=== PATIENT | female | born 1975 | race Caucasian/White ===

== ENCOUNTER 2020-09-25 15:14 | Emergency (ER) | payer SELFPAY ==
[~2020-09-25] VITALS: Ht 162.6 cm; Wt 127.3 kg
[2020-09-25] MEDS ORDERED: CONTRAST GIVEN. MC PRN (17:00)
[2020-09-25] MEDS ORDERED: IOHEXOL 350 MG/ML 100 ML VIAL. IV ONE (17:00)
--- NOTE | 2020-09-25 17:02 | EKG ---
[address] [address] Test Date: 2020-09-25 Test Time: 16:55:57 Pat Name: SYDNI NIÑO Department: Room: Gender: F Ophthalmology Technician: MICHELLE : 1975 Requested By: ARI LAUGHLIN Order Number: [id number] Reading MD: Measurements Intervals [place]olson Rate: 99 P: 31 CO: 150 QRS: 26 QRSD: 86 T: 19 QT: 344 QTc: 447 Interpretive Statements SINUS RHYTHM NORMAL ECG RI6.02 No previous ECG available for comparison
[2020-09-25 17:28] LABS: BILIRUBIN,URINE NEG (NEG); CLARITY,URINE HAZY; COLOR,URINE YELLOW; GLUCOSE,URINE NEG (NEG)
[2020-09-25 17:29] LABS: NITRITE,URINE NEG (NEG); UROBILINOGEN,URINE 0.2 mg/dL (0.2 mg/dL)
[2020-09-25 17:30] LABS: RBC,URINE 0 /HPF (0-2)
[2020-09-25 17:31] LABS: BACTERIA,URINE 0 /HPF (0-FEW); SQUAMOUS EPITHELIAL CELL,UR MOD /LPF; WBC,URINE OCC /HPF (0-4)
[2020-09-25 17:34] LABS: BASO % 0 % (0-3); EOS # 0.1 x10^3/uL (0.0-0.7); EOS % 1 % (0-3); HEMATOCRIT 25.9 % (36.0-47.0); HEMOGLOBIN 8.4 g/dL (12.0-15.5); LYMPH # 1.6 x10^3/uL (1.0-4.8); LYMPH % 11 % (24-48); MEAN CORPUSCULAR HEMOGLOBIN 26 pg (25-35); MEAN CORPUSCULAR HGB CONC 32 g/dL (31-37); MEAN CORPUSCULAR VOLUME 79 fL (79-100); MONO # 1.2 x10^3/uL (0.0-1.1); MONO % 8 % (0-9); NEUT # 11.1 x10^3uL (1.8-7.7); NEUT % 79 % (31-73); PLATELET COUNT 331 x10^3/uL (140-400); RED BLOOD COUNT 3.27 x10^6/uL (3.50-5.40); RED CELL DISTRIBUTION WIDTH 14.5 % (11.5-14.5)
[2020-09-25 17:48] LABS: CALCIUM 9.4 mg/dL (8.5-10.1); CREATININE 0.9 mg/dL (0.6-1.0); GFR 68.7; POTASSIUM 3.7 mmol/L (3.5-5.1)
[2020-09-25 17:54] LABS: ALBUMIN 2.6 g/dL (3.4-5.0); ALBUMIN/GLOBULIN RATIO 0.5 (1.0-1.7); TOTAL BILIRUBIN 0.6 mg/dL (0.2-1.0); TOTAL PROTEIN 8.2 g/dL (6.4-8.2)
--- NOTE | 2020-09-25 18:06 | RAD ---
CTA chest abdomen pelvis with contrast dated 09/25/2020. No comparison available. CLINICAL INDICATION: Shortness of breath. Abdominal pain. TECHNIQUE: Contiguous axial imaging of the chest abdomen pelvis performed following the intravenous administrati on of 100 cc Isovue-370. Study was performed as dedicated CTA with thin cut coronal and sagittal MIPS reconstructions One or more of the following individualized dose reduction techniques were utilized for this examinat ion: 1. Automated exposure control 2. Adjustment of the mA and/or kV according to patient size 3. Use of iterative reconstruction technique FINDINGS: Contrast bolus is adequate. No evidence of central, lobar or segmental pulmonary embolus. Subsegmenta l branches are not well evaluated based on technique. Heart size is within normal limits. No pericardial effusion. There are nonpathologic enlarged lymph n odes in the right paratracheal and prevascular region measuring about 10 mm short axis. There is also borderline enlarged subcarinal and bilateral hilar lymph nodes. No axillary or supraclavicular lymph adenopathy. Thyroid gland is unremarkable. Central airways are patent. There is patchy consolidation of the posterior aspect of the left upper l obe and left lung apex and posterior right upper lobe with diffuse reticular nodular opacities throug hout both lungs. Mild diffuse bronchial wall thickening. No pleural effusion. No pneumothorax. Liver is somewhat enlarged. No apparent mass. Spleen is upper limits of normal in size. Gallbladder a nd biliary tree unremarkable. Pancreas, adrenal glands and kidneys are unremarkable. No hydronephrosis. There is contrast material in the bilateral renal collecting systems. Unopacified GI tract is normal in caliber and contour. No apparent bowel wall thickening. No pneumope ritoneum. The appendix is normal in caliber. There are borderline enlarged lymph nodes in the retrope ritoneum, nonspecific. Abdominal aorta normal in caliber. Images of pelvis show surgical absence of the uterus. There is inflammatory stranding and small amoun t of fluid in the pelvis and surrounding the urinary bladder. There is also edema within the subcutan eous tissues of the anterior abdominal wall with linear tract of fluid in the abdominal wall on the r ight that could be related to recent laparoscopic port site. There are low-density fluid collections along the bilateral sidewall, measuring approximately 6 cm on the right and 3.1 cm on the left. There are borderline enlarged bilateral iliac chain lymph nodes. Bone windows show no acute finding. Multilevel spondylosis. IMPRESSION: 1. No evidence of central, lobar or segmental pulmonary embolus. 2. Extensive reticular nodular opacities throughout both lungs with more focal areas of consolidation in the bilateral upper lobes. This is suspicious for diffuse pneumonia. Atypical infection such as C ovid 19 pneumonitis cannot be excluded. Correlate clinically. 3. Mild mediastinal and hilar adenopathy, nonspecific. 4. There is evidence of prior hysterectomy. Inflammatory stranding and fluid in the deep pelvic fat c ould be related to recent surgery. Underlying infection not excluded. 5. There are more focal fluid collections along the bilateral pelvic sidewall, right greater than lef t which could be related postoperative seroma, lymphocele or abscess. 6. Linear tract of fluid within the subcutaneous tissues of the anterior right abdominal wall, likely related to recent laparoscopic port placement. 7. Mild wall thickening of the urinary bladder, acute versus chronic cystitis. 8. Hepatomegaly. Electronically signed by: Louis Padron MD (09/25/2020 6:03 PM) [id number]
[2020-09-25] MEDS ORDERED: ONDANSETRON PF 4 MG/2 ML VIAL. IVP ONE (18:45)
[2020-09-25] MEDS ORDERED: MORPHINE SULFATE 10 MG/ML SYRINGE. IV ONE (18:45)
[2020-09-25] MEDS ORDERED: levoFLOXacin 250 MG TABLET PO ONE (18:45)
[2020-09-25] MEDS ORDERED: cefTRIAXone SODIUM 1 GM VIAL ONE (19:00)
[2020-09-25] MEDS ORDERED: levoFLOXacin 750 MG TABLET PO ONE (19:00)
[2020-09-25] MEDS ORDERED: IV NORMAL SALINE 50ML 50 ML ONE (19:00)
[2020-09-25 19:36] VITALS: BP 157/87
[2020-09-25] MEDS ORDERED: ONDA4TAB12 PO (19:56)
[2020-09-25] MEDS ORDERED: HYDR-2155 PO (19:56)
[2020-09-25] MEDS ORDERED: LEVO750T5 PO (19:56)
--- NOTE | 2020-09-25 19:59 | PHYS DOC ---
Past History Past Medical History: No Pertinent History (LOUIS LAUGHLIN APRN) Past Surgical History: Hysterectomy (LOUIS LAUGHLIN APRN) Alcohol Use: None (LOUIS LAUGHLIN APRN) Adult General Chief Complaint Chief Complaint: SHORTNESS OF BREATH HPI HPI Patient is a 44-year-old female who presents to the emergency department complaining of urinary burning and pressure for the past week and a half. Patient states it became worse today and noticed some increased shortness of breath with a brown productive sputum cough. Patient states she is coughing up a moderate amount of sputum. Patient also complains of right upper quadrant pain that started last night. Patient denies nausea, vomiting, diarrhea. Patient states she had a normal bowel movement this morning. Patient reports a recent surgical history of total hysterectomy by laparoscopic E on September 092020 related to endometrial cancer, patient states there are also nodules and spots on her lungs, patient reports having her next oncology appointment this coming Sunday. Patient states she is from [facility], was visiting in [facility] for her parents anniversary. Patient states she was on her way home and she could not take her abdominal pain any longer so she stopped off here in [place] to be seen in the emergency de partment. Patient denies allergies to medications, states she takes no medications at home. Patient reports her current pain a 7/10 on a 1-10 pain scale, states she has taken no medications for her pain patient denies any other physical complaints or physical concerns. (LOUIS LAUGHLIN APRN) Review of Systems Review of Systems 14 body systems of review of systems have been reviewed. See HPI for pertinent positives and negative responses, otherwise all other systems are negative, nonpertinent or noncontributory. (LOUIS LAUGHLIN APRN) Current Medications Current Medications Current Medications Medications (Trade) Dose Ordered Sig/Reilly Start Time Stop Time Status Last Admin Dose Admin Ceftriaxone Sodium 1 gm/ Sodium Chloride 50 ml @ 100 mls/hr 1X ONCE 09/25/20 18:45 09/25/20 19:14 DC 09/25/20 19:08 100 MLS/HR Ceftriaxone Sodium (Rocephin) 1 gm STK-MED ONCE 09/25/20 19:00 09/25/20 19:00 DC Fentanyl Citrate (Fentanyl 2ml Vial) 75 mcg 1X ONCE 09/25/20 16:45 09/25/20 16:47 DC 09/25/20 17:04 75 MCG Info (Do NOT chart on this entry -- for MONITORING) 1 each PRN DAILY PRN 09/25/20 17:00 09/27/20 16:59 Iohexol (Omnipaque 350 Mg/ml) 100 ml 1X ONCE 09/25/20 17:00 09/25/20 17:01 DC 09/25/20 17:31 100 ML Levofloxacin (Levaquin) 250 mg 1X ONCE 09/25/20 18:45 09/25/20 18:46 UNV Morphine Sulfate (Morphine 10mg Syringe) 6 mg 1X ONCE 09/25/20 18:45 09/25/20 18:58 DC 09/25/20 19:07 6 MG Ondansetron HCl (Zofran) 4 mg 1X ONCE 09/25/20 18:45 09/25/20 18:58 DC Sodium Chloride 50 ml @ As Directed STK-MED ONCE 09/25/20 19:00 09/25/20 19:00 DC (LOUIS LAUGHLIN APRN) Allergies Allergies Allergies Coded Allergies Type Severity Reaction Last Updated Verified No Known Drug Allergies 09/25/20 No (LOUIS LAUGHLIN APRN) Physical Exam Physical Exam Constitutional: Well developed, well nourished, mild acute distress, non-toxic appearance. HENT: Normocephalic, atraumatic, bilateral external ears normal, oropharynx moist, no oral exudates, nose normal. Eyes: PERRLA, EOMI, conjunctiva normal, no discharge. Neck: Normal range of motion, no tenderness, supple, no stridor. Cardiovascular:Heart rate regular rhythm, no murmur, heart sounds S1-S2 to auscultation. Lungs & Thorax: Bilateral breath sounds clear to auscultation no adventitious lung sounds appreciated. Patient is in no respiratory distress. Abdomen: Bowel sounds normal, soft, no tenderness, no masses, no pulsatile masses. Pain to right upper quadrant to palpation, positive Edmond sign, positive psoas sign, negative rebound tenderness, no bruising or ecchymotic areas of the abdomen, well-healing laparoscopic surgical sites to the abdomen. Skin: Warm, dry, no erythema, no rash. Back: No tenderness, no CVA tenderness. Extremities: No tenderness, no cyanosis, no clubbing, ROM intact, no edema. Neurologic: Alert and oriented X 3, normal motor function, normal sensory function, no focal deficits noted. Psychologic: Affect normal, judgement normal, mood normal. (LOUIS LAUGHLIN APRN) Current Patient Data Vital Signs Vital Signs Date Time Temp Pulse Resp B/P (MAP) Pulse Ox O2 Delivery O2 Flow Rate FiO2 09/25/20 19:07 18 09/25/20 16:51 91 145/77 (99) 95 Room Air 09/25/20 15:26 98.4 Lab Results Laboratory Tests Test 09/25/20 16:08 09/25/20 17:00 Urine Collection Type Unknown Urine Color Yellow Urine Clarity Hazy Urine pH 7.5 Urine Specific [place] 1.020 Urine Protein 100 mg/dl (NEG-TRACE) Urine Glucose (UA) Neg mg/dL (NEG) Urine Ketones (Stick) Neg mg/dL (NEG) Urine Blood Small (NEG) Urine Nitrite Neg (NEG) Urine Bilirubin Neg (NEG) Urine Urobilinogen Dipstick 0.2 mg/dL (0.2 mg/dL) Urine Leukocyte Esterase Neg (NEG) Urine RBC 0 /HPF (0-2) Urine WBC Occ /HPF (0-4) Urine Squamous Epithelial Cells Mod /LPF Urine Bacteria 0 /HPF (0-FEW) White Blood Count 14.0 x10^3/uL (4.0-11.0) H Red Blood Count 3.27 x10^6/uL (3.50-5.40) L Hemoglobin 8.4 g/dL (12.0-15.5) L Hematocrit 25.9 % (36.0-47.0) L Mean Corpuscular Volume 79 fL (79-100) Mean Corpuscular Hemoglobin 26 pg (25-35) Mean Corpuscular Hemoglobin Concent 32 g/dL (31-37) Red Cell Distribution Width 14.5 % (11.5-14.5) Platelet Count 331 x10^3/uL (140-400) Neutrophils (%) (Auto) 79 % (31-73) H Lymphocytes (%) (Auto) 11 % (24-48) L Monocytes (%) (Auto) 8 % (0-9) Eosinophils (%) (Auto) 1 % (0-3) Basophils (%) (Auto) 0 % (0-3) Neutrophils # (Auto) 11.1 x10^3uL (1.8-7.7) H Lymphocytes # (Auto) 1.6 x10^3/uL (1.0-4.8) Monocytes # (Auto) 1.2 x10^3/uL (0.0-1.1) H Eosinophils # (Auto) 0.1 x10^3/uL (0.0-0.7) Basophils # (Auto) 0.0 x10^3/uL (0.0-0.2) Sodium Level 140 mmol/L (136-145) Potassium Level 3.7 mmol/L (3.5-5.1) Chloride Level 103 mmol/L (98-107) Carbon Dioxide Level 27 mmol/L (21-32) Anion Gap 10 (6-14) Blood Urea Nitrogen 11 mg/dL (7-20) Creatinine 0.9 mg/dL (0.6-1.0) Estimated GFR (Cockcroft-Gault) 68.7 BUN/Creatinine Ratio 12 (6-20) Glucose Level 106 mg/dL (70-99) H Calcium Level 9.4 mg/dL (8.5-10.1) Total Bilirubin 0.6 mg/dL (0.2-1.0) Aspartate Amino Transferase (AST) 21 U/L (15-37) Alanine Aminotransferase (ALT) 51 U/L (14-59) Alkaline Phosphatase 174 U/L (46-116) H Troponin I Quantitative < 0.017 ng/mL (0-0.055) Total Protein 8.2 g/dL (6.4-8.2) Albumin 2.6 g/dL (3.4-5.0) L Albumin/Globulin Ratio 0.5 (1.0-1.7) L Lipase 65 U/L (73-393) L (LOUIS LAUGHLIN APRN) EKG EKG EKG performed at 1655 by house respiratory therapy staff shows a normal sinus rhythm without ectopy, heart rate 99 bpm, HI interval 0.150, QTc interval 0.447, no acute STEMI, no ACS, no acute ischemia appreciated, EKG interpreted by ED attending physician Dr. Caputo. (LOUIS LAUGHLIN APRN) Radiology/Procedures Radiology/Procedures PATIENT: SYDNI NIÑO ACCOUNT: [id number] : 1975 LOCATION: ER AGE: 44 SEX: F EXAM STATUS: REG ER ORD. PHYSICIAN: LOUIS LAUGHLIN APRN REASON: SHORT OF BREATH,ABDONINAL PAIN PROCEDURE: CT ANGIO CHEST W ABD PEL W/ CTA chest abdomen pelvis with contrast dated 09/25/2020. No comparison available. CLINICAL INDICATION: Shortness of breath. Abdominal pain. TECHNIQUE: Contiguous axial imaging of the chest abdomen pelvis performed following the intravenous administration of 100 cc Isovue-370. Study was performed as dedicated CTA with thin cut coronal and sagittal MIPS reconstructions One or more of the following individualized dose reduction techniques were utilized for this examination: 1. Automated exposure control 2. Adjustment of the mA and/or kV according to patient size 3. Use of iterative reconstruction technique FINDINGS: Contrast bolus is adequate. No evidence of central, lobar or segmental pulmonary embolus. Subsegmental branches are not well evaluated based on technique. Heart size is within normal limits. No pericardial effusion. There are non pathologic enlarged lymph nodes in the right paratracheal and prevascular region measuring about 10 mm short axis. There is also borderline enlarged subcarinal and bilateral hilar lymph nodes. No axillary or supraclavicular lymphadenopathy. Thyroid gland is unremarkable. Central airways are patent. There is patchy consolidation of the posterior aspect of the left upper lobe and left lung apex and posterior right upper lobe with diffuse reticular nodular opacities throughout both lungs. Mild diffuse bronchial wall thickening. No pleural effusion. No pneumothorax. Liver is somewhat enlarged. No apparent mass. Spleen is upper limits of normal in size. Gallbladder and biliary tree unremarkable. Pancreas, adrenal glands and kidneys are unremarkable. No hydronephrosis. There is contrast material in the bilateral renal collecting systems. Unopacified GI tract is normal in caliber and contour. No apparent bowel wall thickening. No pneumoperitoneum. The appendix is normal in caliber. There are borderline enlarged lymph nodes in the retroperitoneum, nonspecific. Abdominal aorta normal in caliber. Images of pelvis show surgical absence of the uterus. There is inflammatory stranding and small amount of fluid in the pelvis and surrounding the urinary bladder. There is also edema within the subcutaneous tissues of the anterior abdominal wall with linear tract of fluid in the abdominal wall on the right that could be related to recent laparoscopic port site. There are low-density fluid collections along the bilateral sidewall, measuring approximately 6 cm on the right and 3.1 cm on the left. There are borderline enlarged bilateral iliac chain lymph nodes. Bone windows show no acute finding. Multilevel spondylosis. IMPRESSION: 1. No evidence of central, lobar or segmental pulmonary embolus. 2. Extensive reticular nodular opacities throughout both lungs with more focal areas of consolidation in the bilateral upper lobes. This is suspicious for diffuse pneumonia. Atypical infection such as Covid 19 pneumonitis cannot be e xcluded. Correlate clinically. 3. Mild mediastinal and hilar adenopathy, nonspecific. 4. There is evidence of prior hysterectomy. Inflammatory stranding and fluid in the deep pelvic fat could be related to recent surgery. Underlying infection not excluded. 5. There are more focal fluid collections along the bilateral pelvic sidewall, right greater than left which could be related postoperative seroma, lymphocele or abscess. 6. Linear tract of fluid within the subcutaneous tissues of the anterior right abdominal wall, likely related to recent laparoscopic port placement. 7. Mild wall thickening of the urinary bladder, acute versus chronic cystitis. 8. Hepatomegaly. Electronically signed by: Louis Harris MD (09/25/2020 6:03 PM) [id number] DICTATED AND SIGNED BY: LOUIS HARRIS MD DATE: 09/25/201753 CC: LOUIS LAUGHLIN APRN; PCP,NO ~MTH0 0 (LOUIS LAUGHLIN APRN) Heart Score C/O Chest Pain: No Risk Factors: Risk Factors: DM, Current or recent (<one month) smoker, HTN, HLP, family history of CAD, obesity. Risk Scores: Risk Factors: DM, Current or recent (<one month) smoker, HTN, HLP, family history of CAD, obesity. (LOUIS LAUGHLIN APRN) Course & Med Decision Making Course & Med Decision Making Pertinent Labs and Imaging studies reviewed. (See chart for details) 44-year-old female, vital signs reviewed, presents emergency department with complaints of shortness of breath, right upper quadrant pain, and urinary burning and pressure for the past week and a half. Patient had recent surgery on September 09 total hysterectomy for laparoscopically, has been traveling recently from [facility] to [place] for a family event. Physical examination concerning for pulmonary embolus versus infectious process, will order CT angio chest, CBC, CMP, lipase, EKG, troponin. Patient is EKG negative for concerning findings, troponin was negative, patient's lipase was nonconcerning, chemistry panel nonconcerning, patient CBC shows elevated white count 14,000. Patient CT angio chest abdomen pelvis concerning for pneumonia, was unable to rule out abdominal infection. The patient's urine was not infected. Discussed findings with patient, offered admission to the hospital for pneumonia and pain control versus starting antibiotics in the emergency department and discharging to home so she may go back to [facility] with prescription for pain medication and antibiotics to treat pneumonia and pain. The patient and I made a joint decision to trial outpatient pneumonia therapy. Patient was given strict return to ER precautions, see primary care on Sunday, keep oncology appointment on . Patient will be given 1 g IV Rocephin, 750 mg Levaquin. Discuss case with ED attending Dr. Hernandez who recommended Levaquin 750 mg p.o. x5 days for pneumonia therapy as this will also cover any UTI/abdominal infection type infectious component. Patient's IV antibiotics started in the ED prior to discharge. Patient gave verbal understanding of discharge home instructions, strict return to ER precautions and concerns, keep oncology appointment, follow-up with PCP on Sunday, patient states she was feeling much better and wishes to go home, patient was discharged home without incident. (LOUIS LAUGHLIN APRN) Course & Med Decision Making Did not see or evaluate patient. Agree with ACCOUNT LEADER's work-up and disposition per no te (RUSS HERNANDEZ MD) Dragon Disclaimer Dragon Disclaimer This electronic medical record was generated, in whole or in part, using a voice recognition dictation system. (LOUIS LAUGHLIN APRN) Departure Departure: Impression: Primary Impression: Community acquired pneumonia Additional Impression: Abdominal pain Disposition: HOME / SELF CARE / HOMELESS Condition: GOOD Referrals: PCP,JESUS (PCP) Patient Instructions: Abdominal Migraine, Pneumonia, Adult Additional Instructions: You are seen in emergency department for abdominal pain, shortness of breath, your CAT scan of your chest abdomen pelvis is concerning for bilateral upper lobe pneumonia. Your urine was not infected. Your gallbladder and pancreas are within normal limits. I offered admission to the hospital for antibiotic regimen and pain control, you have elected to try outpatient therapy. I am prescribing you Levaquin 750 mg to take once a day for the next 5 days, I am also prescribing you Zofran for nausea, I am prescribing you [place] for pain. Please follow-up with your primary care physician this coming Sunday, please keep your oncology appointment this coming Sunday. Please return to the emergency department for worsening symptoms or other concerns. EMERGENCY DEPARTMENT GENERAL DISCHARGE INSTRUCTIONS Thank you for coming to [facility] (ED) today and trusting us with you care. We trust that you had a positivie experience in our Emergency Department. If you wish to speak to the department management, you may call the director at [phone]. YOUR FOLLOW UP INSTRUCTIONS ARE FOLLOWS: 1. Do you have a private Doctor? If you do not have a private doctor, please ask for a resource list of physicians or clinics that may be able to assist you with follow up care. 2. The Emergency Physician has interpreted your x-rays. The X-Ray specialist will also review them. If there is a change in the findings, you will be notified in 48 hours when at all possible. 3. A lab test or culture has been done, your results will be reviewed and you will be notified if you need a change in treatment. ADDITIONAL INSTRUCTIONS AND INFORMATION: 1. Your care today has been supervised by a physician who is specially trained in emergency care. Many problems require more than one evaluation for a complete diagnosis and treatment. We recommend that you schedule your follow up appointment as recomm ended to ensure complete treatment of you illness or injury. If you are unable to obtain follow up care and continue to have a problem, or if your condition worsens, we recommend that you return to the ED. 2. We are not able to safely determine your condition over the phone nor are we able to give sound medical advice over the phone. For these safety reasons, if you call for medical advice we will ask you to come to the ED for further evaluation. 3. If you have any questions regarding these discharge instructions please call the ED at [phone]. SAFETY INFORMATION: In the interest of safety, wellness, and injury prevention; we encourage you to wear your sealbelt, if you smoke; quite smoking, and we encourage family to use a protective helmet for bicycling and other sporting events that present an increased risk for head injury. IF YOUR SYMPTOMS WORSEN OR NEW SYMPTOMS DEVELOP, OR YOU HAVE CONCERNS ABOUT YOUR CONDITION; OR IF YOUR CONDITION WORSENS WHILE YOU ARE WAITING FOR YOUR FOLLOW UP APPOINTMENT; EITHER CONTACT YOUR PRIMARY CARE DOCTOR, THE PHYSICIAN WHOSE NAME AND NUMBER YOU WERE GIVEN, OR RETURN TO THE ED IMMEDIATELY. Scripts Hydrocodone Bit/Acetaminophen (HYDROCODONE-APAP 5-325 ) 1 Each Tablet 1 TAB PO PRN Q6HRS PRN for PAIN, #15 TAB 0 Refills Prov: LOUIS LAUGHLIN APRN 09/25/20 Ondansetron (ONDANSETRON ODT) 4 Mg Tab.rapdis 1 TAB PO PRN Q6-8HRS for NAUSEA, #16 TAB Prov: LOUIS LAUGHLIN APRN 09/25/20 Levofloxacin (LEVOFLOXACIN) 750 Mg Tablet 1 TAB PO DAILY for PNEUMONIA, #5 TAB Prov: LOUIS LAUGHLIN APRN 09/25/20 Problem Qualifiers Primary Impression: Community acquired pneumonia Laterality: unspecified laterality Qualified Codes: J18.9 - Pneumonia, unspecified organism Additional Impression: Abdominal pain Abdominal location: right upper quadrant Qualified Codes: R10.11 - Right upper quadrant pain LOUIS LAUGHLIN APRN Sep 25, 2020 19:59 RUSS HERNANDEZ MD Sep 26, 2020 01:31
== END 2020-09-25 20:06 | disposition home or self-care (01) ==
LOC: ER 15:14
DX: J18.9 Pneumonia, unspecified organism (principal); R10.11 Right upper quadrant pain; Z20.822 Contact with and (suspected) exposure to COVID-19; Z90.710 Acquired absence of both cervix and uterus
CPT/HCPCS: 36415; 71275; 74177; 80053; 81001; 83690; 84484; 85025; 93005; 96365; 96375; 99285; C9803; J0696; J2270; J3010; Q9967; U0003